=== PATIENT | female | born 1965 | race Caucasian/White ===

== ENCOUNTER 2023-08-19 08:15 | Outpatient (CLI) | payer BC, SELFPAY | END 2023-08-19 08:16 | disposition home or self-care (01) | LOC: NFLDREF 08-22 07:49 | PROVIDERS: PCP Internal Medicine; Referring Provider Internal Medicine; Visit Provider Internal Medicine | DX: E78.5 Hyperlipidemia, unspecified (principal); I10 Essential (primary) hypertension | CPT/HCPCS: 80048; 80061 ==

== ENCOUNTER 2023-12-23 09:04 | Outpatient (CLI) | payer BC, SELFPAY ==
--- NOTE | 2023-12-23 09:15 | MM_ITS ---
Patient: LEE ANN COLLINS Facility:?[facility] Patient ID:?[id number] Site Patient ID:?[id number]. Site :?1965 Study:?XRay-Breast Bilateral 3D W/CAD-12/23/2023 3:07:00 PM Ordering Physician:YASMEEN Final Report: BILATERAL SCREENING MAMMOGRAM WITH COMPUTER-AIDED DETECTION AND TOMOSYNTHESIS TECHNIQUE: CC and MLO views were obtained. These mammographic images have been obtained using full-field digital technique. These mammographic images were interpreted with the benefit of computer-aided detection. Breast Tomosynthesis was used in this interpretation. COMPARISON FILM: 12/20/22, 12/25/21, 11/14/20. FINDINGS: There are scattered areas of fibroglandular density. IMPRESSION: There is no radiographic evidence for malignancy. ASSESSMENT: BI-RADS Category 1: Negative RECOMMENDATION: Routine screening mammogram in 1 year. A lay language report of this examination will be provided to the patient. Shad Villavicencio M.D. Diagnostic Radiologist [email or web address] DSM/sp R& Transcribed: 12:13 p.m. SP/Dictated by: Shad Villavicencio MD @ 12/26/2023 9:56:00 AM Signed by:?Shad Villavicencio MD @12/26/2023 12:24:17 PM (Electronic Signature)
== END 2023-12-23 09:05 | disposition home or self-care (01) ==
LOC: MAMMO 09:04
PROVIDERS: PCP Internal Medicine; Visit Provider Internal Medicine
DX: Z12.31 Encounter for screening mammogram for malignant neoplasm of breast (principal)
CPT/HCPCS: 77063; 77067

== ENCOUNTER 2024-04-24 08:50 | Outpatient (CLI) | payer BC, SELFPAY ==
--- OUTSIDE RECORDS SUMMARY | 2024-04-24 09:01 | XMS_ITS | Clinical Summary ---
Author Organization [facility] Address [place], [place] [address] Care Team Providers Care Milling Machinist Name Role Phone Britt Erwin MD Primary Care Provider [phone] Mark Cordoba RN Unavailable Marilia Juan NP Unavailable [phone] Allergies Active Allergy Reactions Criticality Noted Date Comments Cantaloupe *Unknown 07/02/2022 Lisinopril Cough 08/06/2011 Losartan Other - Describe In Comment Field 05/24/2012 Tired Shellfish Derived Nausea Only,Cough 07/26/2017 Tingling tongue Medications Medication Sig Dispensed Refills Start Date End Date Status LORazepam (ATIVAN) 0.5 mg Tab Take 1 tablet by mouth every 6 hours if needed. 0 09/23/2009 Active hydrOXYzine HCL (ATARAX) 25 mg tabletIndications: Generalized anxiety disorder Take 1 tablet by mouth every 6 hours if needed for Itching. 25 tablet. 1 10/21/2020 Active NebulizerIndicatio ns:Moderate asthma with acute exacerbation, unspecified whether persistent Nebulizer, disposable neb kit x 4, reuseable neb kit x 1, mask x 1, filters x 1. 1 Each 02/03/2022 Active amLODIPine (NORVASC) 10 mg tabletIndications: Essential hypertension Take 1 Tablet (10 mg) by mouth once daily. 90 Tablet 4 08/02/2022 Active bisacodyL (DULCOLAX) 5 mg tablet Take 10 mg by mouth two times daily. Active acetaminophen (TYLENOL) 325 mg tabletIndications: Hematoma of rectus sheath, initial encounter Take 2 Tablets (650 mg) by mouth every 4 hours if needed for Pain (For mild pain.). Max acetaminophen dose: 4000mg in 24 hrs. 0 11/04/2022 Active sennosides (SENNA) 8.6 mg tabletIndications: Chronic constipation Take 1-2 Tablets (8.6-17.2 mg) by mouth 2 times daily if needed for Constipation. 30 Tablet 11/04/2022 Active valACYclovir (VALTREX) 1 gram tabletIndications: Herpes TAKE TWO TABLETS BY MOUTH TWICE DAILY as needed for cold sores 30 Tablet 1 01/19/2023 Active EPINEPHrine (EPIPEN) 0.3 mg/0.3 mL auto-injectorIndic ations:Bee sting allergy Inject 0.3 mg into the muscle one time if needed for Allergic Reaction. 2 Each 1 01/24/2023 Active nitrofurantoin macrocrystaL (MACRODANTIN) 100 mg capsuleIndications :Recurrent UTI nitrofurantoin macrocrystal 100 mg capsule take one capsule by mouth daily as needed 30 Capsule 5 01/31/2023 Active budesonide-formote roL (Symbicort) 160-4.5 mcg/actuation (160-4.5 mcg each actuation) inhalerIndications :Asthma, unspecified asthma severity, unspecified whether complicated, unspecified whether persistent Inhale 2 Puffs by mouth two times daily. 10.2 g 12 01/31/2023 Active codeine-guaiFENesi n (ROBITUSSIN AC) 10-100 mg/5 mL liquidIndications: Cough, unspecified type Take 5-10 mL by mouth every 6 hours if needed for Cough. Max dose 60 mL per 24 hrs. 118 mL 1 01/31/2023 Active hydroCHLOROthiazid e 12.5 mg tabletIndications: Essential hypertension Take 1 Tablet (12.5 mg) by mouth once daily. 30 Tablet 12 01/31/2023 Active semaglutide, weight loss, (WEGOVY) 0.5 mg/0.5 mL penIndications:BMI 33.0-33.9,adult Inject 0.5 mg subcutaneous once weekly. 2 mL 11 03/02/2023 Active benzonatate (TESSALON) 100 mg capsuleIndications :Cough Take 1 Capsule (100 mg) by mouth 3 times daily if needed for Cough. 30 Capsule 04/12/2023 Active albuterol (PROVENTIL) 0.083 % neb solutionIndication s:Mild intermittent asthma without complication Inhale 3 mL (2.5 mg) via a nebulizer every 6 hours if needed for Shortness Of Breath. 75 mL 12 04/18/2023 Active fluconazole (DIFLUCAN) 150 mg tablet Take 1 Tablet (150 mg) by mouth one time for 1 dose. May repeat in 5-7 days if needed* 02/11/2023 Active predniSONE (DELTASONE) 20 mg tablet take 1 tablet by mouth twice a day* 04/16/2023 Active albuterol HFA (Ventolin HFA) 90 mcg/actuation inhalerIndications :Mild intermittent asthma without complication Inhale 2 Puffs by mouth every 6 hours if needed for Shortness Of Breath. 18 g 12 07/01/2023 Active montelukast (SINGULAIR) 10 mg tabletIndications: Mild intermittent asthma without complication Take 1 Tablet (10 mg) by mouth at bedtime. 30 Tablet 09/26/2023 Active Mounjaro 2.5 mg/0.5 mL pen Inject 2.5 mg subcutaneous once weekly. 12/05/2023 Active Active Problems Problem Noted Date Diagnosed Date Left lower lobe pulmonary infiltrate 11/04/2022 Rectus sheath hematoma 11/02/2022 CAP (community acquired pneumonia) 11/02/2022 COVID-19 virus infection 02/02/2022 Last Assessment & Plan: A/P Paxlovid. EUA explained. Fact sheet read to patient. [facility] pharmacy searched and has doses of PAxlovid. Will get a creatinine. Medications reviewed and patient to hold Ativan and Hydroxyzine while on medication Mild intermittent asthma without complication Last Assessment & Plan: A/P reviewed and continue inhalers. Prednisone given in case patient needs it. Essential hypertension 03/12/2019 Controlled substance agreement signed 06/01/2017 Primary osteoarthritis of right knee 11/25/2015 Adhesive capsulitis of shoulder, left 08/27/2011 Generalized anxiety disorder 02/04/2010 Unspecified asthma(493.90) 04/11/2007 Resolved Problems Problem Noted Date Diagnosed Date Resolved Date Anxiety 04/12/2019 04/12/2019 Right knee pain 11/25/2015 09/02/2016 Unspecified essential hypertension 04/11/2007 03/12/2019 Overview: Cough with lisinopril. Poor control and leg cramps with Dyazide. Too much urination with HCTZ alone. Beta blockers have been avoided because of asthma. Does not recall side effects of losartan, but does not want to take again because of side effects. HEALTH MAINTENANCE 04/11/2007 1 Overview: mammogram 11/22 pap 11/22 lipid 11/22 Alcohol abuse 04/12/2019 Overview: Outpatient treatment [place] 2013 Encounters Date Type Department Care Team Description 04/23/2024 10:00 AM CDT Office Visit [facility] [address] [place] [address] Deena Hoover, Akanksha, LP Anxiety; Depression 04/23/2024 Travel 02/27/2024 10:00 AM CDT Office Visit [facility] [address] [place] [address] Deena Hoover PsyD, LP Anxiety; Depression 02/27/2024 Travel 01/31/2024 10:00 AM CDT Telemedicine [facility] [address] [place] [address] Deena Hoover PsyD, LP Anxiety; Depression; Telehealth 01/31/2024 Travel from Last 3 Months Immunizations Name Administration Dates Next Due AMB Influenza, IIV3 (Age >=3 years)(Flu Clinic Only) 07/07/2010,06/25/2009,07/19/2008 COVID-19 vaccine (Moderna 100mcg/0.5mL) PF, MDV 07/16/2021,12/24/2020,11/26/2020 COVID-19 vaccine (Pfizer-Bio NTech 30mcg/0.3mL) 12YO+ BIVALENT PF, MDV 08/02/2022 COVID-19 vaccine (reQallBio NTech 30mcg/0.3mL) 12YO+ LARRY-SUCROSE PF, MDV 04/10/2022 Hepatitis A (Adult) 02/18/2004,09/19/2003 Hepatitis B (Adult) 03/19/2000,11/18/1999,1999 Influenza A (H1N1), Inactivated 10/20/2009 Influenza A (H1N1), Inactiva dianne (Age >=3 Years) 10/20/2009 Influenza RIV4 (Age 18+ Year s) PRESERV FREE 06/18/2022,06/12/2021,06/04/2020 Influenza Virus, Unspecified 06/03/2014, 07/03/2011,06/29/2006,2003 Influenza, IIV3 (Age >=3 years) 06/06/2013,06/27,06/19/2011 Influenza, IIV4 06/20/2023, 8,06/01/2017,2015,06/18/2015 Influenza, IIV4 (=>6mos) MDV 06/15/2019 Measles 07/20/1998 Pneumococcal Conj 20-valent (Prevnar 20) 08/02/2022 Pneumococcal Poly,23-Valent (Pneumovax) 06/19/2003 Rubella 07/20/1998 Td (Age >=7 Years) 07/29/2006,05/22/1996 Tdap 11/25/2017,02/25/2010,04/11/2007 Family History Medical History Relation Name Comments Anxiety disorder Daughter Cancer Father 50 BRAIN TUMOR AG 41 OF Depression Father 50 Cancer-ovarian Maternal Aunt 40's yrs old Cancer Maternal Grandmother MELANOM A Cancer-breast Maternal Grandmother Dx in 40-50's Depression Mother 83 Hypertension Mother 83 Diabetes Paternal Grandfather TYPE 1 Cancer-colon Paternal Grandmother DXS AGE 50S Good Health Sister 62 Anxiety disorder Son Cancer-prostate No Family History Relation Name Status Comments Daughter Alive Father 50 Maternal Aunt Maternal Grandmother Mother 83 Alive Paternal Grandfather Paternal Grandmother Sister 62 Alive Son Alive Social History Tobacco Use Types Packs/Day Years Used Date Smoking Tobacco: Never Smokeless Tobacco: Never Tobacco Cessation:Counseling Given: Yes Alcohol Use Standard Drinks/Week Comments No 0 (1 standard drink = 0.6 oz pur e alcohol) stopped drinking on 07/27/2012 PHQ-2 Answer Date Recorded PHQ-2 TOTAL SCORE 2 04/23/2024 Social Connections Answer Date Recorded Frequency of Communication with Friends and Fami ly Not on file 09/19/2021 Financial Resource Strain Answer Date R ecorded Difficulty of Paying Living Expenses Not on file 09/19/2021 Difficulty of Paying Living Expenses Not on file 09/19/2021 Sex and Gender Information Value Date Recorded Sex Assigned at Not on file Gender Identity Not on file Sexual Orientation Not on file Obstetrics History Last Filed Vital Signs Vital Sign Reading Time Taken Comments Blood Pressure 132/84 12/28/2023 8:56 AM CDT tow er Pulse 81 12/28/2023 8:56 AM CDT Temperature 37.7 ??C (99.8 ??F) 11/05/2022 2:56 PM CS T Respiratory Rate 18 11/05/2022 2:56 PM RADIO INTERFERENCE SUPERVISOR Oxygen Saturation 98% 12/28/2023 8:56 AM CDT Inhaled Oxygen Concentration - - Weight 93.9 kg (207 lb) 06/15/2023 8:00 AM CDT Height 168.9 cm (5' 6.5) 06/15/2023 8:00 AM CDT Body Mass Index 32.91 06/15/2023 8:00 AM CDT Plan of Treatment Upcoming Encounters Date Type Department Care Team (Late st Contact Info) Description 05/24/2024 10:00 AM CDT Office Visit [facility] [address] [place] [address] Deena Hoover PsyD, LUIS [address] [place] [address] 06/05/2024 2:00 PM CDT Office Visit [facility] [address] [place] [address] Burak Baker DPM [address] [place] [address] 07/04/2024 11:00 AM CDT Office Visit [address] [address] Deena Hoover, PsyD, LP [address] [place] [address] 07/31/2024 11:00 AM RADIO INTERFERENCE SUPERVISOR Office Visit [facility] [address] [place] [address] Deena Hoover, PsyD, LP [address] [place] [address] 08/28/2024 1:00 PM RADIO INTERFERENCE SUPERVISOR Office Visit [facility] [address] [place] [address] Deena Hoover, PsyD, LP [address] [place] [address] Health Maintenance Due Date Last Done Comments HIV for age 15-65 1979 Zoster (shingles) series for age 50+ (1 of 2) 2014 Mammogram for age 45-75 12/21/2023 12/21/19, 12/25/2021, 11/14/2020, Additional history exists Influenza for age 50-64 05/20/2024 06/20/20, 06/18/2022, 06/12/2021, Additional history exists BMI (ht and wt on same day) for age 18+ 06/15/2024 06/15/2023, 08/02/2022, 10/21/2020, Additional history exists Depression screening for age 12+ 04/23/2025 04/23/2024, 02/27/2024, 12/28/2023, Additional history exists Colonoscopy through age 75 07/29/202507/29, 04/10/2015, 12/04/2009 Lipids for age 45-75 08/02/2027 08/02/2022, 10/21/2020, 09/28/2019, Additional history exists Tetanus booster 11/26/2027 11/25/2017, 06/05/2010, 04/11/2007, Additional history exists Tdap Completed 11/25/2017, 06/0 05/2010, 04/11/2007 Hepatitis C screening for age 18-79 Completed 08/22/2018 Pneumococcal series for age 6-64 Aged Out 08/02/2022, 06/19/2003 No longer eligibl e based on patient's age to complete this topic COVID-19 vaccine series Completed 07/04/20, 08/02/2022, 04/10/2022, Additional history exists Goals Goal Patient Goal Type Associated Problems Recent Progress Patient-Stated? Author BLOOD PRESSURE - MAINTAINS BP less than 140/90 Blood Pressure No Britt Erwin MD BLOOD PRESSURE - Maintains BP less than 130/80 Blood Pressure No Britt Erwin MD Medical Devices Implanted Type Area Switchboard Clerk Device Identifier Shelf Expiration Date Model / Serial / Lot Insert Knee Rt Sz3 Sm Fraser Unicondylar Uhmwpe - [id number] Implanted:Qty: 1 on 09/02/2016 by Demond Roberts MD at [facility] Right: Knee [employer] [id number] / / [id number] Twin Pegged Cementless Femur V6 Small Implanted:Qty: 1 on 09/02/2016 by Demond Roberts MD at [facility] Explanted:at [facility] (Quantity not on file) Right: Knee [id number] / / [id number] Description:TWIN PEGGED CEME NTLESS FEMUR V6 SMALL Cementless Rt Medial Tibial Tray Implanted:Qty: 1 on 09/02/2016 by Demond Roberts MD at [facility] Right: Knee [id number] / / [id number] Description:CEMENTLESS RT ME DIAL TIBIAL TRAY Procedures Procedure Name Priority Date/Time Associated Diagnosis Comments XR MAMMO PRECIOUS BILAT SCREEN Routine 12/20/2022 2:28 PM CDT Encounter for other screening for malignant neoplasm of breast LIPID PANEL W REFLEX MEASURED LDL Routine 08/02/2022 8:38 AM RADIO INTERFERENCE SUPERVISOR Lipid screening SCAN-COLONOSCOPY 07/29/2020 10:0 0 AM RADIO INTERFERENCE SUPERVISOR ANTI HCV Routine 08/22/2018 8:25 AM RADIO INTERFERENCE SUPERVISOR Need for hepatitis C screening test from Last 3 Months or Most Recently Relevant to Health Maintenance Results * XR MAMMO PRECIOUS BILAT SCREEN (12/20/2022 2:28 PM CDT) Anatomical Region Laterality Modality BREASTS, Breast Left, Breast Right Bilateral Mammography Impressions 12/20/2022 3:11 PM CDT ??There is no radiographic evidence for malignancy. ??Recommend annual mammograms. MAMMOGRAM ASSESSMENT: ??ACR 1 Negative PATIENTS: You will also receive a letter with your examination results in an easy to read format. ??If you have questions about your results, please contact your referring provider. Narrative 12/20/2022 3:11 PM CDT For Patients: As a result of the Cures Act, medical imaging exams and procedure reports are released immediately into your electronic medical record. You may view this report before your referring provider. If you have questions, please contact your health care provider. XR MAMMO PRECIOUS BILAT SCREEN [[id number]] CLINICAL HISTORY: ??This is an asymptomatic 57 y.o. patient. INDICATION FOR EXAM: Mammogram Screening. TECHNIQUE: CC & MLO views were obtained. ??This study was evaluated with the assistance of Computer-Aided Detection. Breast Tomosynthesis was used in interpretation. COMPARISON FILM: Yes 12/25/21 [facility] 11/14/20 [facility] [employer] FINDINGS: ??The breasts have scattered areas of fibroglandular density. There are no dominant masses, suspicious micro calcifications or areas of architectural distortion. Britt Erwin MD MAMMO * (ABNORMAL) LIPID PANEL W REFLEX MEASURED LDL (08/02/2022 8:38 AM RADIO INTERFERENCE SUPERVISOR) CHOLESTEROL,TOTAL 269(H) 100 - 199 mg/dL 08/03/2022 3:21 PM RADIO INTERFERENCE SUPERVISOR [facility] TRIGLYCERIDES 157(H) <150 mg/dL 08/03/2022 3:21 PM RADIO INTERFERENCE SUPERVISOR [facility] HDL CHOLESTEROL 67 >40 mg/dL 2 3:21 PM RADIO INTERFERENCE SUPERVISOR [facility] NON-HDL CHOLESTEROL 202(H) <145 mg/dl 08/03/2022 3:21 PM RADIO INTERFERENCE SUPERVISOR [facility] CHOL/HDL RATIO 4.01 <4.50 08/03/2022 3:21 PM RADIO INTERFERENCE SUPERVISOR [facility] LDL CHOLESTEROL 171(H) <=130 mg/dL 08/03/2022 3:21 PM RADIO INTERFERENCE SUPERVISOR [facility] VLDL CHOLESTEROL 31(H) <=30 mg/dL 08/03/2022 3:21 PM RADIO INTERFERENCE SUPERVISOR [facility] PROVIDER ORDERED STATUS RANDOM 08/03/2022 3:21 PM RADIO INTERFERENCE SUPERVISOR [facility] Blood BLOOD SPECIMEN / Unknown Venipuncture / Unknown 08/02/2022 8:38 AM RADIO INTERFERENCE SUPERVISOR 08/02/2022 8:38 AM RADIO INTERFERENCE SUPERVISOR Britt Erwin MD CHEMISTRY [facility] [address] [place] [address], * SCAN-COLONOSCOPY (07/29/2020 10:00 AM RADIO INTERFERENCE SUPERVISOR) Narrative Procedure Note Zoya Tam MD - 07/29/2020 9:14 AM CST [facility] [address] [place] [address], [facility] [address] [address] Patient Name: Beatrice Mathews Gender: Female Exam Date: 07/29/2020 Visit Number: [id number] Age: 55 Years Date of : 1965 Attending MD: Zoya Tam MD Medical Record#: [id number] Procedure: Colonoscopy Indications: Previous adenomatous polyp(s) Referring MD: Britt Erwin MD Primary MD: Britt Erwin MD Medications: Admitting Medications: 0.9% Normal Saline at TKO Intra Procedure Medications: Patient received monitored anesthesia care. Complications: No immediate complications Procedure: An examination of the heart and lungs was performed and found to be withinacceptable limits. The patient was therefore deemed a reasonablecandidate for endoscopy and sedation. The risks and benefits of the procedure were explained to the patient.After obtaining informed consent, the patient received monitoredanesthesia care and I passed the scope with difficulty via the rectum to the cecum. The appendiceal orifice andic valve were identified. The scope was retroflexed during theexamination The quality of the prep was excellent (Miralax/GatoradeDouble Prep). This was a complete examination throughout the entire colon. Findings: Polyp location: cecum. Quantity: 2. Size: 2-3 mm. Polyp shape:sessile. Maneuver: polypectomy was performed with a cold biopsy forceps. Removal: complete. Retrieval: complete. Bleeding:minimal/oozing. Polyp location: transverse colon. Quantity: 3. Size: 3-4 mm. Polypshape: sessile. Maneuver: polypectomy was performed with a cold biopsy forceps . Removal: complete. Retrieval: complete. Bleeding: minimal/oozing. Diverticulosis. Location: - sigmoid. Description: mild. Size:medium. No inflammation present. Remainder of the exam is normal. Impression: Screen for colon cancer Diverticula of colon Benign colon polyp MD impression comments: Five small polyps. Preliminary Plan: Repeat colonoscopy in 5 years for polyp surveillance Pathology Results: A: COLON, TRANSVERSE, POLYPS: 1. Tubular adenomas (2) and normal biopsies (clinically, 3 polyps) 2. Negative for high grade dysplasia 3. Per the colonoscopy report: a. Polyp sizes: 3 mm - 4 mm b. Resection: Complete c. Retrieval: Complete B: COLON, CECUM, POLYPS: 1. Tubular adenomas (2) 2. Negative for high grade dysplasia 3. Per the colonoscopy report: a. Polyp sizes: 2 mm and 3 mm b. Resection: Complete c. Retrieval: Complete MICROSCOPIC A: Performed B: Performed Electronically signed by: Calixto Rodas MD Interpreted at [address] Orders Instruction(s)/Education: Instruction/Education Timeframe Assessment Colon Cancer Prevention K57.30 Colon Polyps K57.30 Diverticulosis/Diverticulitis K57.30 Final Plan: Return for a colonoscopy in 5 years. We will attempt to contact you at appropriate intervals via U.S. mail. Wemay not be able to find you or contact you at that time, therefore youshould know that the responsibility for following our recommendation restswith you. If you don't hear from us at the time your procedure is due,please contact our office to schedule an appointment. If your contactinformation should change, please contact our office so that we can updateyour record. _Electronically signed by: Zoya Tam MD 07/29/2020 cc: Britt Erwin MD cc: Britt Erwin MD Zoya Tam MD OTHER * ANTI HCV [[id number]] (08/22/2018 8:25 AM RADIO INTERFERENCE SUPERVISOR) HEPATITIS C ANTIBODY Non-React herb Non-React herb 08/22/2018 5:46 PM RADIO INTERFERENCE SUPERVISOR [facility] [employer] [facility] Comment:Antibodies to HCV no t detected; does not exclude the possibility of exposure to HCV. Blood BLOOD SPECIMEN / Unknown Venipuncture / Unknown 08/22/2018 8:25 AM RADIO INTERFERENCE SUPERVISOR 08/22/2018 8:26 AM RADIO INTERFERENCE SUPERVISOR Britt Erwin MD SEND OUTS [facility] [address] [place] [address], from Last 3 Months or Most Recently Relevant to Health Maintenance Advance Directives * Full Code (Latest Code Status on File) Date Activated Date Inactivated Comments 11/02/2022 11:30 PM 11/04/2022 5:17 PM Question Answer Comments Code Status Discussion: Reviewed Preferences * Full Code Date Activated Date Inactivated Comments 09/02/2016 2:41 PM 09/03/2016 5:48 PM * Full Code Date Activated Date Inactivated Comments 09/02/2016 5:24 AM 09/02/2016 2:41 PM Care Teams Milling Machinist Relationship Specialty Start Date End Date Britt Erwin MD PCP - General 09/23/09 Mark Cordoba, IVETTE [address] [place] [address] Registered Nurse 06/15/23 Marilia Juan NP [address] [place] [id number] Nurse Practitioner - Family 06/15/23
== END 2024-04-24 08:51 | disposition home or self-care (01) ==
PROVIDERS: PCP Internal Medicine; Visit Provider Internal Medicine
DX: E78.5 Hyperlipidemia, unspecified (principal); E66.9 Obesity, unspecified; I10 Essential (primary) hypertension
CPT/HCPCS: 80048; 80061

== ENCOUNTER 2024-09-06 08:44 | Outpatient (CLI) | payer BC, SELFPAY | END 2024-09-06 08:45 | disposition home or self-care (01) | LOC: NFLDREF 09-07 23:29 | PROVIDERS: PCP Internal Medicine; Referring Provider Internal Medicine; Visit Provider Internal Medicine | DX: E78.5 Hyperlipidemia, unspecified (principal); I10 Essential (primary) hypertension | CPT/HCPCS: 80048; 80061 ==

== ENCOUNTER 2025-04-03 09:00 | Outpatient (CLI) | payer BC, SELFPAY ==
--- NOTE | 2025-04-03 09:15 | CRLHL7_ITS ---
For Patients: As a result of the Century Cures Act, medical imaging exams and procedure reports are released immediately into your electronic medical record. You may view this report before your referring provider. If you have questions, please contact your health care provider. INDICATION: BILATERAL SCREENING MAMMOGRAM, ASYMPTOMATIC 59 Y/O FEMALE COMPARISON: 12/23/2023, 12/20/2022, 12/25/2021 TECHNIQUE: Digital mammogram in CC and MLO projections including computer-aided detection (CAD) and tomosynthesis. BREAST COMPOSITION: There are scattered areas of fibroglandular density. FINDINGS: No suspicious findings. ASSESSMENT: BI-RADS 1 Negative RECOMMENDATION: Annual screening mammogram. A lay language report of this examination will be provided to the patient. Dictated by: Shad Villavicencio MD @ 04/04/2025 12:03:07 (Electronically Signed)
== END 2025-04-03 09:01 | disposition home or self-care (01) ==
LOC: MAMMO 09:00
PROVIDERS: PCP Internal Medicine; Visit Provider Internal Medicine
DX: Z12.31 Encounter for screening mammogram for malignant neoplasm of breast (principal)
CPT/HCPCS: 77063; 77067